=== PATIENT | female | born 1995 | race Caucasian/White ===

== ENCOUNTER 2019-04-30 21:17 | Outpatient (CLI) | payer MEDICAID ==
[~2019-04-30] VITALS: Ht 154.9 cm; Wt 81.0 kg
[~2019-04-30 21:17] MED LIST: PREN-93 PO
[2019-04-30 23:05] VITALS: Ht 154.9 cm; Wt 81.0 kg
[2019-04-30 23:06] VITALS: BP 125/77; PULSE 88; RESP 18
[2019-04-30] MEDS ORDERED: ACETAMINOPHEN 500 MG TAB PO ONE (23:54)
== END 2019-05-01 03:18 | disposition home or self-care (01) ==
LOC: OBT 21:17 → L-D 21:19 → OBT 05-01 03:18
PROVIDERS: ATTEND Obstetrics & Gynecology
DX: O13.3 Gestational [pregnancy-induced] hypertension without significant proteinuria, third trimester (principal); Z3A.37 37 weeks gestation of pregnancy
CPT/HCPCS: 76818; 80053; 81001; 81003; 82570; 83615; 84560; 85025; Z7500; Z7610; G0463